=== PATIENT | male | born 1950 | race Caucasian/White ===

== ENCOUNTER 2016-09-03 10:00 | Outpatient (CLI) | payer MEDICARE, OTHER ==
[2014-09-15 00:44] VITALS: BP 142/88
[2016-09-03 10:25] LABS: MEAN CORPUSCULAR HEMOGLOBIN 24.2 pg (28.0-34.0)
[2016-09-03 10:55] LABS: eGFR (African) > 60; eGFR (Non-African) > 60
== END 2016-09-03 10:20 ==
LOC: LAB 10:00
PROVIDERS: ATTEND Nurse Practitioner Family
DX: I10 Essential (primary) hypertension (principal); I25.10 Atherosclerotic heart disease of native coronary artery without angina pectoris; E78.5 Hyperlipidemia, unspecified
CPT/HCPCS: 36415; 80053; 80061; 85027

== ENCOUNTER 2016-09-12 08:33 | Outpatient (CLI) | payer MEDICARE, OTHER ==
[2014-09-15 00:44] VITALS: BP 142/88
[2016-09-12 08:52] LABS: BASOPHILS % 0.6 (0.0-1.5); EOSINOPHILS % 2.5 % (0.0-6.8); LYMPHOCYTES # 1.4 # k/uL (0.6-4.0); MEAN CORPUSCULAR HEMOGLOBIN 24.8 pg (28.0-34.0); MONOCYTES # 0.3 # k/uL (0.0-0.9); MONOCYTES % 6.8 % (0.0-11.0); NEUTROPHILS # 2.8 # k/uL (1.4-7.7)
[2016-09-12 09:11] LABS: eGFR (African) > 60; eGFR (Non-African) > 60
== END 2016-09-12 08:34 ==
LOC: LAB 08:33
PROVIDERS: ATTEND Internal Medicine Cardiovascular Disease
DX: I25.10 Atherosclerotic heart disease of native coronary artery without angina pectoris (principal); R53.83 Other fatigue
CPT/HCPCS: 36415; 80053; 80061; 84439; 84443; 85025; 85610

== ENCOUNTER 2017-08-25 08:42 | Outpatient (CLI) | payer MEDICARE, OTHER ==
[2014-09-15 00:44] VITALS: BP 142/88
[2017-08-25 09:08] LABS: BASOPHILS % 0.7 (0.0-1.5); EOSINOPHILS % 2.5 % (0.0-6.8); MEAN CORPUSCULAR HEMOGLOBIN 32.6 pg (28.0-34.0); MEAN CORPUSCULAR VOLUME 94.8 fl (80.0-100.0); MONOCYTES % 4.3 % (0.0-11.0); NEUTROPHILS # 2.8 # k/uL (1.4-7.7)
[2017-08-25 09:39] LABS: eGFR (African) > 60; eGFR (Non-African) > 60
== END 2017-08-25 08:43 ==
LOC: LAB 08:42
PROVIDERS: ATTEND Internal Medicine Cardiovascular Disease
DX: I10 Essential (primary) hypertension (principal); I25.10 Atherosclerotic heart disease of native coronary artery without angina pectoris; E78.4 Other hyperlipidemia
CPT/HCPCS: 36415; 80053; 80061; 85025

== ENCOUNTER 2018-09-08 09:38 | Outpatient (CLI) | payer MEDICARE, OTHER ==
[2014-09-15 00:44] VITALS: BP 142/88
[2018-09-08 09:57] LABS: MEAN CORPUSCULAR HEMOGLOBIN 27.7 pg (28.0-34.0)
[2018-09-08 09:58] LABS: BASOPHILS % 0.4 (0.0-1.5); EOSINOPHILS % 2.6 % (0.0-6.8); MONOCYTES % 5.6 % (0.0-11.0); NEUTROPHILS # 3.9 # k/uL (1.4-7.7)
[2018-09-08 10:06] LABS: eGFR (Non-African) > 60
== END 2018-09-08 09:40 ==
LOC: LAB 09:38
PROVIDERS: ATTEND Internal Medicine Cardiovascular Disease
DX: I10 Essential (primary) hypertension (principal); I25.10 Atherosclerotic heart disease of native coronary artery without angina pectoris; E78.49 Other hyperlipidemia
CPT/HCPCS: 36415; 80053; 80061; 85025